=== PATIENT | male | born 1945 | race Caucasian/White ===

== ENCOUNTER 2018-08-11 13:17 | Day surgery (SDC) | payer MEDICARE ==
[2018-08-11] MEDS ORDERED: Marcaine 0.5% SDV 10 ML IJ ONE (13:18)
[2018-08-11] MEDS ORDERED: Xylocaine 1% Vial 30 ML PF IJ ONE (13:18)
[2018-08-11] MEDS ORDERED: Depo-Medrol 40 MG/ML IM ONE (13:18)
--- NOTE | 2018-08-11 16:17 | XRAY ---
10 seconds of fluoroscopy was used in surgery for left intra-articular shoulder injection.
--- NOTE | 2018-08-12 05:26 | XRAY ---
Indication: Left intra-articular shoulder injection. Intraoperative fluoroscopy was provided for 10 seconds. Single digital spot image demonstrates the needle tip at the superior medial edge of the left humeral head. Some contrast has been injected for needle tip placement. Correlate with intraoperative findings/report.
== END 2018-08-11 15:05 | disposition home or self-care (01) ==
LOC: SDC-PAIN 13:17
PROVIDERS: ATTEND Psychiatry & Neurology Pain Medicine
DX: M19.012 Primary osteoarthritis, left shoulder (principal); E11.9 Type 2 diabetes mellitus without complications; E03.9 Hypothyroidism, unspecified; M79.7 Fibromyalgia; I51.9 Heart disease, unspecified; M06.9 Rheumatoid arthritis, unspecified; G47.30 Sleep apnea, unspecified; I10 Essential (primary) hypertension
CPT/HCPCS: 20610; 73030; 77002; 82962; J1030; J2001; Q9966

== ENCOUNTER 2020-05-09 07:57 | Day surgery (SDC) | payer MEDICARE ==
[2020-05-09] MEDS ORDERED: LIDOCAINE HCL 2% 100 MG/5 ML IJ ONE (07:58)
[2020-05-09] MEDS ORDERED: Depo-Medrol 40 MG/ML IM ONE (07:58)
[2020-05-09] MEDS ORDERED: D50W 50 ml Abboject IV ONE (09:01)
[2020-05-09] MEDS ORDERED: DIPRIVAN 200 MG/20 ML IV ONE (09:18)
[2020-05-09] MEDS ORDERED: Ketamine HCl 50 MG/ML ONE (09:18)
[2020-05-09] MEDS ORDERED: Lactated Ringers 1,000 ML IV ONE (11:01)
--- NOTE | 2020-05-09 11:45 | XRAY ---
Indication: Bilateral L4-S1 MBB. Intraoperative fluoroscopy provided for 22 seconds. Single digital spot image submitted for interpretation demonstrates posterior needle tips projecting over the expected left and right L4-S1 nerve roots. Correlate with intraoperative findings/report.
--- NOTE | 2020-05-09 11:49 | XRAY ---
22 seconds fluoroscopy time in surgery for bilateral L4-S1 MBB.
== END 2020-05-09 09:58 | disposition home or self-care (01) ==
LOC: SDC-PAIN 07:57
PROVIDERS: ATTEND Psychiatry & Neurology Pain Medicine
DX: M47.816 Spondylosis without myelopathy or radiculopathy, lumbar region (principal); E11.9 Type 2 diabetes mellitus without complications; I10 Essential (primary) hypertension; J44.9 Chronic obstructive pulmonary disease, unspecified; E03.9 Hypothyroidism, unspecified; G47.30 Sleep apnea, unspecified; G62.9 Polyneuropathy, unspecified; Z79.899 Other long term (current) drug therapy
CPT/HCPCS: 64493; 64494; 72020; 77002; 82947; J1030; J2704

== ENCOUNTER 2020-06-13 08:00 | Day surgery (SDC) | payer MEDICARE ==
[2020-06-13] MEDS ORDERED: Depo-Medrol 40 MG/ML IM ONE (08:01)
[2020-06-13] MEDS ORDERED: BUPIVACAINE 0.5% VIAL IJ ONE (08:01)
[2020-06-13] MEDS ORDERED: Ketamine HCl 50 MG/ML ONE (10:05)
[2020-06-13] MEDS ORDERED: DIPRIVAN 200 MG/20 ML IV ONE (10:05)
--- NOTE | 2020-06-13 12:19 | XRAY ---
Indication: Bilateral L4-S1 MBB. Intraoperative fluoroscopy provided for 17 seconds. Single digital spot image submitted for interpretation demonstrates posterior needle tips projecting over the expected left and right L4-S1 nerve roots. Correlate with intraoperative findings/report.
--- NOTE | 2020-06-13 12:54 | XRAY ---
17 seconds of fluoroscopy was used in surgery for a bilateral L4-L5 and L5-S1 MBB.
[2020-06-13] MEDS ORDERED: Lactated Ringers 1,000 ML IV ONE (15:13)
== END 2020-06-13 10:40 | disposition home or self-care (01) ==
LOC: SDC-PAIN 08:00
PROVIDERS: ATTEND Psychiatry & Neurology Pain Medicine
DX: M47.816 Spondylosis without myelopathy or radiculopathy, lumbar region (principal); E03.9 Hypothyroidism, unspecified; L40.50 Arthropathic psoriasis, unspecified; G62.9 Polyneuropathy, unspecified; Z79.899 Other long term (current) drug therapy; E11.9 Type 2 diabetes mellitus without complications; I10 Essential (primary) hypertension
CPT/HCPCS: 64493; 64494; 72020; 77002; 82947; J1030; J2704

== ENCOUNTER 2020-06-30 15:21 | Emergency (ER) | payer MEDICARE ==
[2020-06-30] MEDS ORDERED: MORPHINE SULFATE 4 MG INJ IM ONE (16:41)
[2020-06-30] MEDS ORDERED: MORPHINE SULFATE 4 MG INJ ONE (16:44)
--- NOTE | 2020-06-30 17:11 | ERPHSYRPT ---
- History of Present Illness Time Seen by Provider: 06/30/20 15:27 Source: patient Exam Limitations: no limitations Patient Subjective Stated Complaint: L foot pain Triage Nursing Assessment: pt to ED c/o L foot pain and small knot to top of L foot onset early this am. pt reports sharp intermittent pain 8/10 randomly but 0/10 pain at rest. noted 2 small, less than 1 cm, abrasions near knot on foot. pt takes oxycodode daily that has not relieved pain. Physician History: 75 years old male with multiple medical problems including poorly controlled arthritic pain presented in the ER with a chief complaint of left dorsal foot pain and a small knot which he noticed this morning. Pain comes and goes. 8/10 intensity when it comes, last for few seconds and improves with no pain in between the episodes. Unable to figure out any significant aggravating or relieving factors. No fall or trauma reported. Taking his routine pain medication from pain management and does not seem helping. No swelling of the foot. No fever or chills reported. No pain with movements of ankle. Allergies/Adverse Reactions: dobutamine Allergy (Verified 06/30/20 15:44) latex Allergy (Verified 06/30/20 15:44) simvastatin [From Zocor] Allergy (Verified 06/30/20 15:44) Home Medications: Amlodipine Besylate 5 mg PO DAILY 11/14/16 [History] Aspirin EC 325 mg [Ecotrin 325 MG] 325 mg PO DAILY 11/14/16 [History] Docusate Sodium 100 mg [Colace 100 MG] 400 mg PO DAILY 11/14/16 [History] Duloxetine HCl 30 mg [Cymbalta 30 MG Capsule] 120 mg PO DAILY 11/14/16 [History] Infliximab 100 mg [Remicade 100MG Injection] 90 mg IV DIRECTIONS UNKNOWN 11/14/16 [History] Insulin Glargine,Hum.rec.anlog [Lantus] 122 unit SQ DAILY 11/14/16 [History] Levothyroxine Sodium 150 mcg PO DAILY 11/14/16 [History] Lisinopril/Hydrochlorothiazide [Lisinopril-Hctz 20-12.5 mg Tab] 1 each PO DAILY 11/14/16 [History] Loratadine 10 mg [Claritin 10 mg] 10 mg PO DAILY 11/14/16 [History] Metformin HCl [Glucophage] 1,000 mg PO BID 11/14/16 [History] Metoprolol Tartrate 25 mg [Lopressor 25MG Tab] 25 mg PO BID 11/14/16 [History] Nitroglycerin 0.4 mg Tablet [Nitrostat 0.4 MG Tablet] 0.4 mg SL Q5MIN PRN MR X 3 PRN 11/14/16 [History] Pantoprazole 40 mg [Protonix 40 mg IV] 40 mg PO DAILY 11/14/16 [History] Prasugrel HCl [Effient] 10 mg PO DAILY 11/14/16 [History] Pregabalin [Lyrica 150Mg] 300 mg PO DAILY 11/14/16 [History] Rosuvastatin Calcium [Crestor] 5 mg PO DAILY 11/14/16 [History] Buspirone HCl [Buspar] 10 mg PO DAILY 06/09/17 [History] L.acidoph,Paracasei, B.lactis [Probiotic] 1 each PO DAILY 06/09/17 [History] [place]-3 Fatty Acids/Fish Oil [Fish Oil 1,000 mg Capsule] 1 each PO DAILY 06/09/17 [History] Prasterone (Dhea)/Calcium Carb [Dhea 50 mg Tablet] 1 each PO DAILY 06/09/17 [History] Celecoxib [Celebrex] 200 mg PO DAILY 07/22/17 [History] Testosterone Undecanoate [Aveed] 0 mg IM WEEKLY 07/22/17 [History] Hx Tetanus, Diphtheria Vaccination/Date Given: Yes Hx Influenza Vaccination/Date Given: Yes Hx Pneumococcal Vaccination/Date Given: Yes Immunizations Up to Date: Yes Travel Risk - International Travel Have you traveled outside of the country in past 3 weeks: No - Coronavirus Screening Are you exhibiting any of the following symptoms?: No Close contact with a COVID-19 positive Pt in past 14-21 Days: No - Vaccine Status Have you recieved a Covid-19 vaccination: Yes Internet [employer]: [employer] - Vaccination Dates Date of 2cond Vaccination (if applicable): June 22 - Review of Systems Constitutional: No Symptoms Ears, Nose, & Throat: No Symptoms Respiratory: No Symptoms Cardiac: No Symptoms Abdominal/Gastrointestinal: No Symptoms Genitourinary Symptoms: No Symptoms Musculoskeletal: Arthralgias, Joint Pain Skin: No Symptoms Neurological: No Symptoms - Past Medical History Pertinent Past Medical History: Yes Neurological History: No Pertinent History ENT History: No Pertinent History Cardiac History: Coronary Artery Disease, High Cholesterol, Hypertension, Myocardial Infarction ([place]), Other Respiratory History: Other Endocrine Medical History: Diabetes Type II, Hyperthyroidism Musculoskeletal History: Arthritis, Osteoarthritis, Rheumatoid Arthritis GI Medical History: No Pertinent History History: No Pertinent History Psycho-Social History: Depression Male Reproductive Disorders: No Pertinent History Other Medical History: sarcodosis - Past Surgical History Past Surgical History: Yes Neuro Surgical History: No Pertinent History Cardiac: Cardiac Catheterization, Cardiac Stent Respiratory: No Pertinent History Gastrointestinal: No Pertinent History Musculoskeletal: Joint Replacement, Orthopedic Surgery Male Surgical History: Other Other Surgical History: bilateral knees, neurostimulator in back, - Social History Smoking Status: Never smoker Exposure to second hand smoke: No Drug Use: none Patient Lives Alone: No - Nursing Vital Signs Nursing Vital Signs: Initial Vital Signs Temperature 98.3 F 06/30/20 15:34 Pulse Rate 59 L 06/30/20 15:34 Respiratory Rate 18 06/30/20 15:34 Blood Pressure 101/71 06/30/20 15:34 O2 Sat by Pulse Oximetry 96 06/30/20 15:34 Pain Scale Pain Intensity 8 - Physical Exam General Appearance: no apparent distress Neck Exam: normal inspection, supple, full range of motion Cardiovascular/Respiratory Exam: normal breath sounds, regular rate/rhythm Back Exam: normal inspection Legs Exam: bilateral leg: non-tender, normal inspection, normal range of motion Ankle Exam: bilateral ankle: non-tender, normal inspection, normal range of motion, no evidence of injury Foot Exam: right foot: non-tender, normal inspection, normal range of motion, no evidence of injury, left foot: bone tenderness (Anterolateral foot, superficial scratches the cuboid area), pain, soft tissue tenderness Neuro/Tendon Exam: normal sensation, normal motor functions Mental Status Exam: alert, oriented x 3, cooperative Skin Exam: normal color SpO2 Interpretation: normal SpO2: 96 O2 Delivery: Room Air Ordered Tests: Active Orders 24 hr Category Date Time Status FOOT (MINIMUM 3 VIEWS) Stat Exams 06/30/20 16:44 Taken Medication Summary Discontinued Medications Generic Name Dose Route Start Last Admin Trade Name Georgette PRN Reason Stop Dose Admin Morphine Sulfate 4 mg 06/30/20 16:41 06/30/20 16:46 Morphine Sulfate 4 Mg Inj IM 06/30/20 16:42 4 mg STAT ONE Administration Morphine Sulfate Confirm 06/30/20 16:44 Morphine Sulfate 4 Mg Inj Administered 06/30/20 16:45 Dose 4 mg .ROUTE .STK-MED ONE - Progress Progress: pain not gone completely, re-examined Progress Note: 06/30/20 17:10 No obvious signs of trauma. Superficial skin scratches. No point tenderness. Could be related to arthritis/nerve pain. Given morphine for symptomatic relief. X-rays did not show any obvious fracture dislocation reviewed by me, official report is pending. I offered long boot but patient does not want it. Recommended outpatient podiatry follow-up. Counseled pt/family regarding: diagnosis, need for follow-up, rad results - Departure Departure Disposition: Home Clinical Impression: Acute foot pain Qualifiers: Laterality: left Qualified Code(s): M79.672 - Pain in left foot Condition: Stable Critical Care Time: No Referrals: FABIAN GARY [Primary Care Provider] - (In 2 days for reevaluation) KAILYN ESTRADA DPM [ACTIVE STAFF] - (In 2 days for reevaluation) Instructions: Foot Sprain (DC), Contusion (DC) Additional Instructions: Take your pain medications which you have at home as recommended. Avoid exertional activities. Weightbearing as tolerated. Follow-up with podiatry for reevaluation early next week. Return to ER for worsening.
[2020-06-30 17:17] VITALS: BP 125/69; PULSE 55; O2SAT 95
--- NOTE | 2020-07-01 08:03 | XRAY ---
Indication: Pain. Lateral knot. Comparison: None 3 nonweightbearing views left foot demonstrates small posterior/tiny heel spurs, small medial malleolus tip heterotopic ossification and scattered vascular calcifications. No other bony, articular, or soft tissue abnormalities.
== END 2020-06-30 17:24 | disposition home or self-care (01) ==
LOC: ED 15:21
DX: M79.672 Pain in left foot (principal); S90.812A Abrasion, left foot, initial encounter; Z79.899 Other long term (current) drug therapy; Z79.891 Long term (current) use of opiate analgesic; Z79.84 Long term (current) use of oral hypoglycemic drugs; Z79.4 Long term (current) use of insulin; E11.9 Type 2 diabetes mellitus without complications; I25.10 Atherosclerotic heart disease of native coronary artery without angina pectoris; E78.00 Pure hypercholesterolemia, unspecified; I10 Essential (primary) hypertension; I25.2 Old myocardial infarction; E05.90 Thyrotoxicosis, unspecified without thyrotoxic crisis or storm
CPT/HCPCS: 73630; 96372; 99284; J2270

== ENCOUNTER 2020-07-11 07:32 | Day surgery (SDC) | payer MEDICARE ==
[2020-07-11] MEDS ORDERED: BUPIVACAINE 0.5% VIAL IJ ONE (07:33)
[2020-07-11] MEDS ORDERED: Xylocaine 1% Vial 30 ML PF IJ ONE (07:33)
[2020-07-11] MEDS ORDERED: Depo-Medrol 40 MG/ML IM ONE (07:33)
[2020-07-11] MEDS ORDERED: DIPRIVAN 200 MG/20 ML IV ONE (09:07)
--- NOTE | 2020-07-11 11:01 | XRAY ---
Indication: Left L3-L5 ROXANNE. Intraoperative fluoroscopy provided for 51 seconds. 3 digital spot image submitted for interpretation demonstrates posterior needle tips projecting over the expected left L4-S1 nerve roots. Correlate with intraoperative findings/report.
--- NOTE | 2020-07-11 11:24 | XRAY ---
29 seconds fluoroscopy time in surgery for left L4-S1 RFA.
[2020-07-11] MEDS ORDERED: Lactated Ringers 1,000 ML IV ONE (16:28)
== END 2020-07-11 09:52 | disposition home or self-care (01) ==
LOC: SDC-PAIN 07:32
PROVIDERS: ATTEND Psychiatry & Neurology Pain Medicine
DX: M47.817 Spondylosis without myelopathy or radiculopathy, lumbosacral region (principal); E11.9 Type 2 diabetes mellitus without complications; M79.7 Fibromyalgia; E03.9 Hypothyroidism, unspecified; L40.50 Arthropathic psoriasis, unspecified; G62.9 Polyneuropathy, unspecified; G47.30 Sleep apnea, unspecified
CPT/HCPCS: 64635; 64636; 72100; 77002; 82947; 99100; J1030; J2001; J2704

== ENCOUNTER 2020-07-18 07:45 | Day surgery (SDC) | payer MEDICARE ==
[2020-07-18] MEDS ORDERED: BUPIVACAINE 0.5% VIAL IJ ONE (07:46)
[2020-07-18] MEDS ORDERED: Xylocaine 1% Vial 30 ML PF IJ ONE (07:46)
[2020-07-18] MEDS ORDERED: Depo-Medrol 40 MG/ML IM ONE (07:46)
[2020-07-18] MEDS ORDERED: DIPRIVAN 200 MG/20 ML IV ONE (09:04)
--- NOTE | 2020-07-18 16:11 | XRAY ---
26 seconds fluoroscopy time in surgery for right L4-S1 RFA.
[2020-07-18] MEDS ORDERED: Lactated Ringers 1,000 ML IV ONE (16:38)
--- NOTE | 2020-07-19 21:28 | XRAY ---
Indication: Right L4-S1 RFA. Intraoperative fluoroscopy was provided for 26 seconds. 2 digital spot images submitted for interpretation demonstrate posterior needle tips projected over the expected right L4-S1 nerve roots. Correlate with intraoperative report/findings.
== END 2020-07-18 09:48 | disposition home or self-care (01) ==
LOC: SDC-PAIN 07:45
PROVIDERS: ATTEND Psychiatry & Neurology Pain Medicine
DX: M47.816 Spondylosis without myelopathy or radiculopathy, lumbar region (principal); E11.9 Type 2 diabetes mellitus without complications; E03.9 Hypothyroidism, unspecified; I10 Essential (primary) hypertension; M06.9 Rheumatoid arthritis, unspecified; L40.50 Arthropathic psoriasis, unspecified; G47.30 Sleep apnea, unspecified; G62.9 Polyneuropathy, unspecified; Z79.899 Other long term (current) drug therapy
CPT/HCPCS: 64635; 64636; 72100; 77002; 82947; 99100; J1030; J2001; J2704

== ENCOUNTER 2022-10-08 15:21 | Day surgery (SDC) | payer MEDICARE | END 2022-10-08 15:45 | LOC: SDC-PAIN 15:21 | PROVIDERS: ATTEND Psychiatry & Neurology Pain Medicine | DX: Z53.8 Procedure and treatment not carried out for other reasons (principal); R73.9 Hyperglycemia, unspecified | CPT/HCPCS: 82947 ==

== ENCOUNTER 2022-11-05 13:34 | Day surgery (SDC) | payer MEDICARE ==
[2022-11-05] MEDS ORDERED: Depo-Medrol 40 MG/ML IM ONE (13:35)
[2022-11-05] MEDS ORDERED: XYLOCAINE 1% HCL 20 ML MDV IJ ONE (13:35)
[2022-11-05] MEDS ORDERED: BUPIVACAINE 0.5% VIAL IJ ONE (13:35)
--- NOTE | 2022-11-05 20:51 | XRAY ---
Indication: Bilateral SI joint injection. Intraoperative fluoroscopy provided for 13 seconds. 4 digital spot images submitted for interpretation demonstrates posterior needle tip projecting over the expected left and right SI joints. Correlate with intraoperative findings/report.
--- NOTE | 2022-11-06 09:54 | XRAY ---
13 seconds of fluoroscopy was used in surgery for a bilateral sacroiliac joint injection.
== END 2022-11-05 18:30 | disposition home or self-care (01) ==
LOC: SDC-PAIN 13:34
PROVIDERS: ATTEND Psychiatry & Neurology Pain Medicine
DX: M46.1 Sacroiliitis, not elsewhere classified (principal); E11.9 Type 2 diabetes mellitus without complications; Z79.899 Other long term (current) drug therapy
CPT/HCPCS: 27096; 72202; 77002; 82947; G0260; J1030

== ENCOUNTER 2022-12-24 08:24 | Day surgery (SDC) | payer MEDICARE ==
[2022-12-24] MEDS ORDERED: Depo-Medrol 40 MG/ML IM ONE (08:25)
[2022-12-24] MEDS ORDERED: BUPIVACAINE 0.5% VIAL IJ ONE (08:25)
[2022-12-24] MEDS ORDERED: LIDOCAINE HCL 1% 50 MG/5 ML VL PF IJ ONE (08:25)
[2022-12-24] MEDS ORDERED: DIPRIVAN 200 MG/20 ML IV ONE (09:22)
[2022-12-24] MEDS ORDERED: Lactated Ringers 1,000 ML IV ONE (10:02)
--- NOTE | 2022-12-24 12:04 | XRAY ---
Indication: Left L4-S1 RFA. Intraoperative fluoroscopy provided for 20 seconds. 5 digital spot image submitted for interpretation demonstrates posterior needle tips projecting over the expected left L4-S1 nerve roots. Correlate with intraoperative findings/report.
--- NOTE | 2022-12-24 12:12 | XRAY ---
20 seconds of fluoroscopy was used in surgery for a left L4-S1 RFA.
== END 2022-12-24 09:55 | disposition home or self-care (01) ==
LOC: SDC-PAIN 08:24
PROVIDERS: ATTEND Psychiatry & Neurology Pain Medicine
DX: M47.816 Spondylosis without myelopathy or radiculopathy, lumbar region (principal); E11.9 Type 2 diabetes mellitus without complications; Z79.899 Other long term (current) drug therapy
CPT/HCPCS: 64635; 64636; 72100; 77002; 82947; 99100; J1030; J2001; J2704

== ENCOUNTER 2024-02-10 07:57 | Day surgery (SDC) | payer MEDICARE ==
[2024-02-10] MEDS ORDERED: Decadron 4 MG INJ IV ONE (07:58)
[2024-02-10] MEDS ORDERED: Xylocaine-Mpf 2% 5 Ml Vial IJ ONE (07:58)
[2024-02-10] MEDS ORDERED: DIPRIVAN 200 MG/20 ML IV ONE (09:40)
--- NOTE | 2024-02-10 12:58 | XRAY ---
Indication: Right C2-C4 MBB. Intraoperative fluoroscopy provided for 22 seconds. 3 digital spot image submitted for interpretation demonstrates posterior needle tips projecting over expected right C2-C4 nerve roots. Correlate with intraoperative findings/report.
--- NOTE | 2024-02-10 14:47 | XRAY ---
22 seconds of fluoroscopy was used in surgery for a right C2-C4 MBB.
== END 2024-02-10 10:24 | disposition home or self-care (01) ==
LOC: SDC-PAIN 07:57
PROVIDERS: ATTEND Psychiatry & Neurology Pain Medicine
DX: M47.812 Spondylosis without myelopathy or radiculopathy, cervical region (principal); E11.9 Type 2 diabetes mellitus without complications
CPT/HCPCS: 64490; 64491; 72040; 77002; 82947; J1100; J2704

== ENCOUNTER 2024-03-30 08:22 | Day surgery (SDC) | payer MEDICARE ==
[2024-03-30] MEDS ORDERED: propofoL IV ONE (09:59)
--- NOTE | 2024-03-30 11:42 | XRAY ---
Indication: Left C2-C4 MBB. Intraoperative fluoroscopy provided for 23 seconds. 2 digital spot images submitted for interpretation demonstrates posterior needle tips projecting over expected left C2-C4 nerve roots. Correlate with intraoperative findings/report.
--- NOTE | 2024-03-30 11:44 | XRAY ---
23 seconds of fluoroscopy was used in surgery for a left C2-C4 MBB.
== END 2024-03-30 10:48 | disposition home or self-care (01) ==
LOC: SDC-PAIN 08:22
PROVIDERS: ATTEND Psychiatry & Neurology Pain Medicine
DX: M47.812 Spondylosis without myelopathy or radiculopathy, cervical region (principal); E11.9 Type 2 diabetes mellitus without complications
CPT/HCPCS: 64490; 64491; 72040; 77002; 82947; J2704

== ENCOUNTER 2024-05-04 07:37 | Day surgery (SDC) | payer MEDICARE ==
[2024-05-04] MEDS ORDERED: dexAMETHasone sodium phosphate IJ ONE (07:38)
[2024-05-04] MEDS ORDERED: BUPIVACAINE 0.5% VIAL IJ ONE (07:38)
[2024-05-04] MEDS ORDERED: D50W 50 ml Abboject IV ONE (08:45)
[2024-05-04] MEDS ORDERED: propofoL IV ONE (09:28)
--- NOTE | 2024-05-04 10:37 | XRAY ---
Indication: Right C2-C4 MBB. Intraoperative fluoroscopy provided for 23 seconds. 2 digital spot image submitted for interpretation demonstrates posterior needle tips projecting over expected right C2-C4 nerve roots. Correlate with intraoperative findings/report.
--- NOTE | 2024-05-04 10:39 | XRAY ---
23 seconds of fluoroscopy was used in surgery for a right C2-C4 MBB.
== END 2024-05-04 10:03 | disposition home or self-care (01) ==
LOC: SDC-PAIN 07:37
PROVIDERS: ATTEND Psychiatry & Neurology Pain Medicine
DX: M47.812 Spondylosis without myelopathy or radiculopathy, cervical region (principal); E10.9 Type 1 diabetes mellitus without complications
CPT/HCPCS: 64490; 64491; 72040; 77002; 82947; J1100; J2704

== ENCOUNTER 2024-05-25 07:41 | Day surgery (SDC) | payer MEDICARE ==
[2024-05-25] MEDS ORDERED: D50W 50 ml Abboject IV ONE (07:42)
[2024-05-25] MEDS ORDERED: dexAMETHasone sodium phosphate IJ ONE (07:42)
[2024-05-25] MEDS ORDERED: BUPIVACAINE 0.5% VIAL IJ ONE (07:42)
[2024-05-25] MEDS ORDERED: Lactated Ringers 500 ML IV ONE (08:17)
[2024-05-25] MEDS ORDERED: propofoL IV ONE (09:41)
--- NOTE | 2024-05-25 11:38 | XRAY ---
Indication: Left C2-C4 MBB. Interoperative fluoroscopy provided for 11 seconds. 2 digital spot image submitted for interpretation demonstrates posterior needle tips project over expected left C2-C4 nerve root. Correlate with intraoperative findings/report.
--- NOTE | 2024-05-25 11:44 | XRAY ---
11 seconds of fluoroscopy was used in surgery for a left C2-C4 MBB.
== END 2024-05-25 10:10 | disposition home or self-care (01) ==
LOC: SDC-PAIN 07:41
PROVIDERS: ATTEND Psychiatry & Neurology Pain Medicine
DX: M47.812 Spondylosis without myelopathy or radiculopathy, cervical region (principal); E11.9 Type 2 diabetes mellitus without complications
CPT/HCPCS: 64490; 64491; 72040; 77002; 82947; J1100; J2704

== ENCOUNTER 2024-06-15 06:50 | Day surgery (SDC) | payer MEDICARE ==
[2024-06-15] MEDS ORDERED: BUPIVACAINE 0.5% VIAL IJ ONE (06:51)
[2024-06-15] MEDS ORDERED: LIDOCAINE HCL 1% AMPUL 5 ML IJ ONE (06:51)
[2024-06-15] MEDS ORDERED: dexAMETHasone sodium phosphate IJ ONE (06:51)
[2024-06-15] MEDS ORDERED: Lactated Ringers 500 ML IV ONE (06:53)
[2024-06-15] MEDS ORDERED: D50W 50 ml Abboject IV ONE (07:15)
[2024-06-15] MEDS ORDERED: propofoL IV ONE (08:13)
--- NOTE | 2024-06-15 10:19 | XRAY ---
Indication: Left C2-C4 RFA. Intraoperative fluoroscopy provided for 33 seconds. 5 digital spot images submitted for interpretation demonstrates posterior needle tips projecting over expected left C2-C4 nerve roots. Correlate with intraoperative findings/report.
--- NOTE | 2024-06-15 10:26 | XRAY ---
33 seconds of fluoroscopy was used in surgery for a left C2-C4 RFA
== END 2024-06-15 09:13 | disposition home or self-care (01) ==
LOC: SDC-PAIN 06:50
PROVIDERS: ATTEND Psychiatry & Neurology Pain Medicine
DX: M47.812 Spondylosis without myelopathy or radiculopathy, cervical region (principal); E11.9 Type 2 diabetes mellitus without complications
CPT/HCPCS: 64633; 64634; 72040; 82947; 99100; J1100; J2704

== ENCOUNTER 2024-06-22 07:23 | Day surgery (SDC) | payer MEDICARE ==
[~2024-06-22 07:23] MED LIST: Lactated Ringers 500 ML IV ONE
[2024-06-22] MEDS ORDERED: BUPIVACAINE 0.5% VIAL IJ ONE (07:24)
[2024-06-22] MEDS ORDERED: LIDOCAINE HCL 1% AMPUL 5 ML IJ ONE (07:24)
[2024-06-22] MEDS ORDERED: dexAMETHasone sodium phosphate IJ ONE (07:24)
[2024-06-22] MEDS ORDERED: propofoL IV ONE (08:49)
--- NOTE | 2024-06-22 11:43 | XRAY ---
Indication: Right C2-C4 RFA. Intraoperative fluoroscopy provided for 19 seconds. 2 digital spot image submitted for interpretation demonstrate posterior needle tips projecting over expected right C2-C4 nerve roots. Correlate with intraoperative findings/report.
--- NOTE | 2024-06-22 12:58 | XRAY ---
18 seconds of fluoroscopy was used in surgery for a right C2-C4 RFA.
== END 2024-06-22 09:30 | disposition home or self-care (01) ==
LOC: SDC-PAIN 07:23
PROVIDERS: ATTEND Psychiatry & Neurology Pain Medicine
DX: M47.812 Spondylosis without myelopathy or radiculopathy, cervical region (principal); E11.9 Type 2 diabetes mellitus without complications
CPT/HCPCS: 64633; 64634; 72040; 82947; 99100; J1100; J2704

== ENCOUNTER 2024-07-07 07:41 | Day surgery (SDC) | payer MEDICARE ==
[2024-07-07] MEDS ORDERED: LIDOCAINE HCL 1% AMPUL 5 ML IJ ONE (07:42)
[2024-07-07] MEDS ORDERED: BUPIVACAINE 0.5% VIAL IJ ONE (07:42)
[2024-07-07] MEDS ORDERED: Depo-Medrol 40 MG/ML IM ONE (07:42)
[2024-07-07] MEDS ORDERED: Lactated Ringers 500 ML IV ONE (08:23)
[2024-07-07] MEDS ORDERED: propofoL IV ONE (09:29)
--- NOTE | 2024-07-07 19:25 | XRAY ---
13 seconds of fluoroscopy was used in surgery for a right L4-S1 RFA.
--- NOTE | 2024-07-07 19:35 | XRAY ---
Indication: Right L4-S1 RFA. Intraoperative fluoroscopy provided for 13 seconds. 4 digital spot image submitted for interpretation demonstrates posterior needle tips projecting over expected right L4-S1 nerve roots. Correlate with intraoperative findings/report.
== END 2024-07-07 10:12 | disposition home or self-care (01) ==
LOC: SDC-PAIN 07:41
PROVIDERS: ATTEND Psychiatry & Neurology Pain Medicine
DX: M47.817 Spondylosis without myelopathy or radiculopathy, lumbosacral region (principal); E10.9 Type 1 diabetes mellitus without complications
CPT/HCPCS: 64635; 64636; 72100; 82947; 99100; J2704

== ENCOUNTER 2024-07-13 07:11 | Day surgery (SDC) | payer MEDICARE ==
[2024-07-13] MEDS ORDERED: BUPIVACAINE 0.5% VIAL IJ ONE (07:12)
[2024-07-13] MEDS ORDERED: Depo-Medrol 40 MG/ML IM ONE (07:12)
[2024-07-13] MEDS ORDERED: LIDOCAINE HCL 1% AMPUL 5 ML IJ ONE (07:12)
[2024-07-13] MEDS ORDERED: propofoL IV ONE (08:44)
[2024-07-13] MEDS ORDERED: Lactated Ringers 1,000 ML IV ONE ×2 (09:06→10:19)
--- NOTE | 2024-07-13 10:24 | XRAY ---
Indication: Left L4-S1 RFA. Intraoperative fluoroscopy provided for 16 seconds. 4 digital spot images submitted for interpretation demonstrates posterior needle tips projecting over expected left L4-S1 nerve roots. Correlate with operative findings/report. Incidental incompletely visualized epidural leads.
--- NOTE | 2024-07-13 11:06 | XRAY ---
16 seconds of fluoroscopy used in surgery for a left L4-S1 RFA.
== END 2024-07-13 09:25 | disposition home or self-care (01) ==
LOC: SDC-PAIN 07:11
PROVIDERS: ATTEND Psychiatry & Neurology Pain Medicine
DX: M47.816 Spondylosis without myelopathy or radiculopathy, lumbar region (principal); E11.9 Type 2 diabetes mellitus without complications
CPT/HCPCS: 64635; 64636; 72100; 82947; 99100; J2704